=== PATIENT | male | born 1950 | race Caucasian/White ===

== ENCOUNTER 2019-05-07 20:30 | Outpatient (CLI) | payer MEDICARE | END 2019-05-07 20:31 | disposition home or self-care (01) | LOC: SLEEPLAB 20:30 | PROVIDERS: ATTEND Internal Medicine | DX: G47.33 Obstructive sleep apnea (adult) (pediatric) (principal); R06.83 Snoring; E11.9 Type 2 diabetes mellitus without complications; I10 Essential (primary) hypertension; Z86.73 Personal history of transient ischemic attack (TIA), and cerebral infarction without residual deficits | CPT/HCPCS: 95811 ==

== ENCOUNTER 2024-08-09 00:34 | Observation (INO) | payer MEDICARE ==
[2024-08-09] MEDS ORDERED: Ondansetron PF 4 MG/2 ML Vial IVP PRN (02:18)
[2024-08-09] MEDS ORDERED: Acetaminophen 325 MG TAB PO PRN (02:18)
[2024-08-09] MEDS ORDERED: Ondansetron ODT 4 MG TAB PO PRN (02:18)
[2024-08-09] MEDS ORDERED: Ipratropium/Albuterol 3 ML NEB NEB PRN (02:31)
[2024-08-09] MEDS ORDERED: Dextrose 50% Abboject 50 ML SYRINGE SLOW IVP PRN (03:03)
[2024-08-09] MEDS ORDERED: Insulin Lispro 100 UNIT/ML 10 ML VIAL SC PRN (03:03)
[2024-08-09] MEDS ORDERED: Dextrose 5% in Water 1,000 ML IV PRN (03:03)
[2024-08-09] MEDS ORDERED: Glucagon 1 MG/ML KIT IM PRN (03:03)
[2024-08-09] MEDS: Sodium Chloride 0.9% 1,000 ML IV SCH (03:12)
[2024-08-09 03:20] VITALS: BMI 31.4
[2024-08-09] MEDS: Doxycycline 100 MG CAP PO SCH ×2 (04:50→21:01)
[2024-08-09] MEDS: cefTRIAXone\\ROCEPHIN 1 GM in Sodium Chloride 0.9% 100 ML IVPB SCH (04:50)
[2024-08-09 06:05] LABS: Anion Gap 15 mmol/L (10-20); BUN (Urea Nitrogen) 21 mg/dL (8.4-25.7); Calc. Creatinine Clearance 78 mL/min (70-130); Calcium 8.6 mg/dL (7.8-10.44); Carbon Dioxide 17 mmol/L (23-31); Chloride 111 mmol/L (98-107); Estimated GFR 62; Glucose 94 mg/dL (83-110); Potassium 3.5 mmol/L (3.5-5.1); Sodium 139 mmol/L (136-145)
[2024-08-09 06:07] LABS: #Basophils 0.07 10x3/uL (0.0-0.2); %Basophils 0.7 % (0.0-1.0); %Eosinophils 2.8 % (0.0-10.0); %Lymphocytes 14.6 % (21.0-51.0); %Monocytes 10.8 % (0.0-10.0); %Neutrophils 70.7 % (42.0-75.0); Hematocrit 37.7 % (42.0-52.0); Hemoglobin 12.5 g/dL (14.0-18.0); Mean Corpuscular HGB CONC 33.2 g/dL (32.0-36.0); Mean Corpuscular Hemoglobin 29.2 pg (27.0-31.0); Mean Corpuscular Volume 88.1 fL (78.0-98.0); Mean Platelet Volume 9.4 fL (7.4-10.4); Platelet Count 153 10x3/uL (130-400); RBC Distribution Width 14.6 % (11.5-14.5); Red Blood Cell (RBC) Count 4.28 mill/uL (4.70-6.10)
[2024-08-09 06:33] LABS: Legionella Urinary Ag Negative (Negative); Strep pneumo Urine Ag NEGATIVE (NEGATIVE)
[2024-08-09] MEDS: Aspirin 81 mg Enteric Coated Tablet PO SCH (10:00)
[2024-08-09] MEDS: Rosuvastatin 20 MG TAB PO SCH (10:01)
[2024-08-09] MEDS: Glimepiride 2 MG TAB PO SCH (10:01)
[2024-08-09] MEDS: Carvedilol 6.25 MG TAB PO SCH (10:01)
[2024-08-09] MEDS: Heparin 5,000 UNITS/ML VIAL SC SCH (10:01)
[2024-08-09] MEDS: Insulin Lispro 100 UNIT/ML 10 ML VIAL SC PRN (11:04)
[2024-08-10 04:56] LABS: #Basophils 0.05 10x3/uL (0.0-0.2); %Basophils 0.9 % (0.0-1.0); %Eosinophils 8.3 % (0.0-10.0); %Lymphocytes 26.2 % (21.0-51.0); %Neutrophils 53.4 % (42.0-75.0); Hematocrit 36.9 % (42.0-52.0); Hemoglobin 12.1 g/dL (14.0-18.0); Mean Corpuscular HGB CONC 32.8 g/dL (32.0-36.0); Mean Corpuscular Volume 88.5 fL (78.0-98.0); Platelet Count 138 10x3/uL (130-400); RBC Distribution Width 14.5 % (11.5-14.5); Red Blood Cell (RBC) Count 4.17 mill/uL (4.70-6.10)
[2024-08-10 05:08] LABS: Anion Gap 12 mmol/L (10-20); BUN (Urea Nitrogen) 23 mg/dL (8.4-25.7); Calc. Creatinine Clearance 71 mL/min (70-130); Calcium 9.1 mg/dL (7.8-10.44); Carbon Dioxide 21 mmol/L (23-31); Chloride 108 mmol/L (98-107); Estimated GFR 55; Glucose 106 mg/dL (83-110); Potassium 3.9 mmol/L (3.5-5.1); Sodium 137 mmol/L (136-145)
[2024-08-10 07:47] VITALS: BP 145/68; TEMP 97
[2024-08-10] MEDS: cefTRIAXone\\ROCEPHIN 2 GM in Sodium Chloride 0.9% 100 ML IVPB SCH (08:17)
== END 2024-08-10 11:45 | disposition home or self-care (01) ==
LOC: 2NO 02:00
PROVIDERS: ADMIT Internal Medicine; ATTEND Family Medicine
PROC: B246ZZZ Ultrasonography of Right and Left Heart (ICD-10-PCS; principal; 2024-08-09)
DX: S22.39XA Fracture of one rib, unspecified side, initial encounter for closed fracture (principal); R53.1 Weakness; E11.9 Type 2 diabetes mellitus without complications; I10 Essential (primary) hypertension; E78.5 Hyperlipidemia, unspecified; E66.9 Obesity, unspecified; N17.9 Acute kidney failure, unspecified; J18.9 Pneumonia, unspecified organism; N39.0 Urinary tract infection, site not specified; Z79.84 Long term (current) use of oral hypoglycemic drugs; Z79.899 Other long term (current) drug therapy; Z79.82 Long term (current) use of aspirin; Z79.4 Long term (current) use of insulin; Z86.73 Personal history of transient ischemic attack (TIA), and cerebral infarction without residual deficits; Z98.890 Other specified postprocedural states; X58.XXXA Exposure to other specified factors, initial encounter
CPT/HCPCS: 71045; 74176; 80048 ×2; 81001; 82550; 82962 ×3; 83735; 83880; 84484; 85025 ×2; 87086; 87428; 87449; 87899; 93005; 93306; 97116; 99285; J0696 ×2; J1644 ×2; J1815; J7030; 36415; 36416; 80053; 84443; 96365; 96372; 96376; G0378